=== PATIENT | female | born 2005 | race Hispanic/Latino ===

== ENCOUNTER 2024-05-07 14:45 | Emergency (ER) | payer SELFPAY ==
[~2024-05-07] VITALS: Ht 157.5 cm; Wt 40.8 kg
[2024-05-07 15:40] LABS: BASOPHILS # (AUTO) 0.05 K/uL (0.00-0.20); BASOPHILS % (AUTO) 0.6 % (0.0-5.0); EOSINOPHILS # (AUTO) 0.39 K/uL (0.00-0.70); IMMATURE GRANULOCYTE ABSOLUTE 0.02 K/uL (0-1); LYMPHOCYTES # (AUTO) 2.1 K/uL (1.0-4.8); LYMPHOCYTES % (AUTO) 27.1 % (21.0-51.0); MEAN CORPUSCULAR HGB CONC 33.5 g/dL (32.0-36.0); MEAN CORPUSCULAR VOLUME 89.6 fL (80-100); MONOCYTES # (AUTO) 0.5 K/uL (0.1-1.0); MONOCYTES % (AUTO) 5.7 % (3.0-13.0); NEUTROPHILS # (AUTO) 4.8 K/uL (1.8-7.7); NEUTROPHILS % (AUTO) 61.3 % (40.0-77.0); PLATELET COUNT (AUTO) 247 K/uL (130-400); RED BLOOD CELL COUNT(AUTO) 4.13 MIL/uL (4.00-5.50); RED CELL DISTRIBUTION WIDTH 11.4 % (11.0-15.5); WHITE BLOOD COUNT (AUTO) 7.9 K/uL (4.8-10.8)
[2024-05-07 15:46] LABS: APPEARANCE,URINE CLEAR (CLEAR); BILIRUBIN,URINE NEGATIVE (NEGATIVE); COLOR,URINE LIGHT-YELLOW (YELLOW); GLUCOSE, URINE (UA) NEGATIVE (NEGATIVE); KETONES,URINE NEGATIVE (NEGATIVE); LEUKOCYTE ESTERASE ,URINE NEGATIVE Leu/uL (NEGATIVE); NITRATE,URINE NEGATIVE (NEGATIVE); OCCULT BLOOD,URINE NEGATIVE (NEGATIVE); PROTEIN,URINE NEGATIVE (NEGATIVE); UROBILINOGEN,URINE 0.2 mg/dL (0.2-1.0)
[2024-05-07 15:47] LABS: ADD UA MICROSCOPIC NO
[2024-05-07 15:47] LABS: CREATININE 0.6 mg/dL (0.5-1.0); POTASSIUM 4.2 mmol/L (3.5-5.1)
[2024-05-07 15:49] LABS: HCG,QUALITATIVE URINE NEGATIVE (NEGATIVE)
[2024-05-07 16:18] VITALS: BP 99/60; PULSE 77; RESP 16; TEMP 98.3; O2SAT 98
[2024-05-07] MEDS ORDERED: IBUP-2077 PO (16:23)
== END 2024-05-07 16:50 | disposition home or self-care (01) ==
LOC: EDH 14:45
DX: R10.32 Left lower quadrant pain (principal); F41.9 Anxiety disorder, unspecified
CPT/HCPCS: 36415; 76770; 80048; 81003; 81025; 85025

== ENCOUNTER 2025-05-04 19:40 | Emergency (ER) | payer SELFPAY ==
[~2025-05-04] VITALS: Ht 157.5 cm; Wt 39.9 kg
[~2025-05-04 19:40] MED LIST: AMOX1TAB16 PO; IBUP-1492 PO; IBUP-2077 PO; PHEN-847 PO
[2025-05-04 19:56] LABS: APPEARANCE,URINE CLEAR (CLEAR); GLUCOSE, URINE (UA) NEGATIVE (NEGATIVE); LEUKOCYTE ESTERASE ,URINE NEGATIVE Leu/uL (NEGATIVE); NITRATE,URINE NEGATIVE (NEGATIVE); OCCULT BLOOD,URINE NEGATIVE (NEGATIVE)
[2025-05-04 19:58] LABS: ADD UA MICROSCOPIC YES; SQUAMOUS EPITHELIAL CELL,UR FEW /HPF (0-2)
[2025-05-04 20:08] LABS: SARS-CoV-2, RNA, NAAT NEGATIVE SARS CoV-2 (NEGATIVE)
[2025-05-04 20:12] LABS: RAPID GROUP A STREP negative (NEGATIVE)
[2025-05-04 20:22] LABS: INFLUENZA TYPE A Negative For Type A (NEGATIVE); INFLUENZA TYPE B Negative For Type B (NEGATIVE)
[2025-05-04] MEDS: LACTATED RINGERS 1000ML 1,000 ML IV STA (20:28)
[2025-05-04] MEDS: BENZOCAINE/MENTH/CETYLPYRD CL 1 EACH LOZENGE MM STA (20:28)
--- NOTE | 2025-05-04 20:38 | ERN ---
ED Note History of Present Illness Stated Complaint: C/O HEADACHE,SORE THROAT,SOB,COUGH,FEVER,CHILLS Chief Complaint: Sore Throat Time Seen by MD: 19:44 Time Seen by Midlevel: 19:50 Dictation: 19-year-old female with no past medical history coming in complaining of throat pain, headache, generalized weakness and fever. Patient states it has been going on since it is the weekend. Patient states she was seen at a clinic on Friday where they tested her for strep and was negative. Patient however states she still has a same symptoms. Allergies: Coded Allergies: No Known Allergies (Unverified Allergy, Unknown, 05/07/24) Home Meds Active Scripts Ibuprofen (Ibuprofen) 600 Mg Tablet, 600 MG PO Q6H PRN for PAIN, #30 TAB Prov:KOREY MONTESP 11/15/24 Amoxicillin/Potassium Clav (Amox Tr-K Clv 875-125 mg Tab) 875 Mg-125 Mg Tablet, 1 EACH PO BID for 7 Days, #14 TAB 0 Refills Prov:KOREY MONTES 11/15/24 Phenazopyridine HCl (Pyridium) 200 Mg Tab, 200 MG PO TIDPC for 3 Days, #9 TAB TAKE WITH FOOD TO PREVENT STOMACH UPSET. Prov:KOREY MONTES 11/15/24 Ibuprofen (Ibuprofen 800 mg Tab) 800 Mg Tab, 800 MG PO Q8H PRN for fever or pain, #30 TAB 0 Refills Prov:KOREY MONTES 05/07/24 Past Medical History Past Medical History: No Pertinent History Surgical History: None History: Not Applicable LMP: Apr 24, 2025 Review of System Dictation Constitutional: Negative for fever,chills, and weight loss Eyes: Negative for injury, pain,redness, and discharge ENT: Negative for injury,pain or swelling Cardiovascular: Negative for chest pain, palpitations, and edema Respiratory: Negative for shortness of breath, positive cough Abdomen/GI: Negative for abdominal pain, nausea, vomiting, diarrhea, and constipation Back: Negative for injury and pain : Negative for injury, bleeding and discharge MS/Extremity: Negative for injury and deformity Skin: Negative for rash, and discoloration Neuro: Negative for headache, weakness, numbness, tingling, and seizure Psych: Negative for suicide ideation, homicidal ideation, and hallucinations Review of Systems: was completed Initial Vital Sign VS Vital Signs Date Time Temp Pulse Resp B/P (MAP) Pulse Ox O2 Delivery O2 Flow Rate FiO2 05/04/25 19:44 99.1 102 20 115/69 99 Room Air 05/04/25 20:05 0 21 Physical Exam Dictation General: awake, alert, NAD Head/Face: Normocephalic, atraumatic Eyes: PERRL, EOMI, vision at baseline ENT: oral cavity clear, TMs clear, no signs of infection Neck: Trachea midline, supple, no nuchal rigidity Cardiovascular: RRR, normal S1/S2, No MRGs, no JVD Respiratory: CTAB, no respiratory distress, No rales or wheezes Abdomen: Soft, non-tender, non-distended, normal bowel sounds, no guarding or rebound. Skin: Warm, dry, normal turgor, no rash MS/Extremity: Pulses equal, no cyanosis, neurovascular intact, FROM Neuro: COAx4, GCS 15, strength 5/5, CN 2-12 intact, normal cerebellar exam, normal gait, Psych: Normal behavior, mood, and affect normal Results (Laboratory/Radiology) Laboratory/Radiology Laboratory Tests Test 05/04/25 19:46 05/04/25 20:04 Urine Color LIGHT-YELLOW (YELLOW) Urine Appearance CLEAR (CLEAR) Urine pH 7.5 (5.0-8.0) Urine Specific Dora 1.021 (1.001-1.031) Urine Protein NEGATIVE mg/dL (NEGATIVE) Urine Glucose (UA) NEGATIVE mg/dL (NEGATIVE) Urine Ketones NEGATIVE mg/dL (NEGATIVE) Urine Occult Blood NEGATIVE (NEGATIVE) Urine Nitrate NEGATIVE (NEGATIVE) Urine Bilirubin NEGATIVE mg/dL (NEGATIVE) Urine Urobilinogen 0.2 mg/dL (0.2-1.0) Urine Leukocyte Esterase NEGATIVE Addy/uL Urine RBC 2-5 /HPF (0-1) H Urine WBC 2-5 /HPF (0-1) H Urine Squamous Epithelial Cells FEW /HPF (0-2) Urine Bacteria RARE /HPF (None Seen) Influenza Type A Antigen Negative For Type A Influenza Type B Antigen Negative For Type B SARS-CoV-2, RNA, NAAT NEGATIVE SARS CoV-2 Group A Streptococcus Rapid negative (NEGATIVE) Human Chorionic Gonadotropin, Quant 0 mIU/mL (0-5) Labs Reviewed?: Yes ED Course ED Course Orders Procedure Category Date Status Time Urinalysis Profile LAB 05/04/25 Complete 19:42 Covid Rna Naat LAB 05/04/25 Complete 19:42 Influenza Type A & B, LAB 05/04/25 Complete Rapid 19:42 Rapid (Group A Strep) LAB 05/04/25 Complete 19:42 Hcg,Quantitative LAB 05/04/25 Complete 19:48 Chest 1vw RAD 05/04/25 Taken 19:48 Lactated Ringers PHA 05/04/25 Complete 1000ml (Lactated 19:48 Acetaminophen 325 Tab PHA 05/04/25 Complete (Tylenol 325mg Tab 20:00 Benzocaine/Menth/Cetylpyrd PHA 05/04/25 Complete Cl (Cepacol S 19:48 Current Medications Medications (Trade) Dose Ordered Sig/Maisha Route PRN Reason Start Time Stop Time Status Last Admin Dose Admin Acetaminophen (TYLenol 325MG TAB) 650 mg ONCE ONCE PO 05/04/25 20:00 05/04/25 20:01 DC 05/04/25 20:28 Benzocaine (Cepacol Sore Throat Lozenge) 1 each Q4H STAT MM 05/04/25 19:48 05/04/25 19:52 DC 05/04/25 20:28 Lactated Ringer's 1,000 ml @ 1,000 mls/hr Q1H STAT IV 05/04/25 19:48 05/04/25 20:47 DC 05/04/25 20:28 Vital Signs Date Time Temp Pulse Resp B/P (MAP) Pulse Ox O2 Delivery O2 Flow Rate FiO2 05/04/25 20:05 99.3 105 19 114/65 98 Room Air* 0 21 05/04/25 19:44 99.1 102 20 115/69 99 Room Air Medical Decision Making MDM MDM: 19-year-old female with no past medical history coming in complaining of throat pain, headache, generalized weakness and fever. Patient states it has been going on since it is the weekend. Patient states she was seen at a clinic on Friday where they tested her for strep and was negative. Patient however states she still has a same symptoms. Swabs are negative for COVID, flu or strep. Chest x-ray shows no acute findings, interpreted by myself. UA shows no evidence of urinary tract infection. Discussed with the patient it is more than likely viral pharyngitis and just needs from 7-10 days to have any improvement. Educated take [id number] cough medication and cough drops her throat Wilma also warm gargles. Educated to follow up with PCP in 1-2 days. Patient verbalized understanding, answered all questions. Differential diagnosis: Awake, flu, strep, viral syndrome, viral pharyngitis Rationale: Tests considered and ordered secondary to shared decision making i nclude: Previous outside records reviewed: Old ER visits. Risk of complication and/or morbidity or mortality of patient management: None Medications-Per medication reconciliation Need for hospitalization: Patient does not meet criteria for hospitalization. Need for emergency major/minor surgery: No There are no social concerns with this patient. Prescription drug management Prescriptions will include symptomatic care Patient's prior external medical records from other ER visits were reviewed by me as indicated. Prior testing and results from previous visits were reviewed. Prior tests were taken into account with medical decision making and resource utilization, independent historian/historians were used to obtain complete medical history. I independently interpreted the test that were performed, results were reviewed by me and considered findings on radiology if ordered. Medical management and examination interpretation discussions were had by me with other qualified healthcare professionals as indicated for the patient's care. DX & DISP Disposition: Discharge Departure Impression: Primary Impression: Viral pharyngitis Condition: Stable Additional Instructions: Your strep was negative. You can take [id number] medications to help with symptomatic control like Tylenol or Motrin for fever. You can take cough drops for the cough and you can do warm gargles to help soothe your throat pain. Follow up with your primary doctor in 1-2 days. Return to the hospital as needed. Referrals: SELF,REFERRAL (PCP) Time of Disposition: 21:39 I have reviewed the case, and I agree with, Diagnosis and Plan ARMOND ENNIS May 04, 2025 20:38
[2025-05-04 22:15] VITALS: BP 116/67; PULSE 93; RESP 18; TEMP 98.7; O2SAT 97
--- NOTE | 2025-05-04 22:30 | HMCIMG ---
EXAM: CR Chest, 1 view CLINICAL HISTORY: Cough. COMPARISON: None provided. FINDINGS: The lungs show no infiltrates or other acute findings. No pleural effusion or pneumothorax. The cardiomediastinal silhouette is within normal limits. No acute osseous abnormality. IMPRESSION: No acute cardiopulmonary process is evident. /[place]
== END 2025-05-04 22:20 | disposition home or self-care (01) ==
LOC: EDH 19:40
DX: J02.8 Acute pharyngitis due to other specified organisms (principal); B97.89 Other viral agents as the cause of diseases classified elsewhere; R53.1 Weakness; Z20.822 Contact with and (suspected) exposure to COVID-19
CPT/HCPCS: 99284; 96360; 87635; 71045; 84702; 87880; 87804 ×2; 81001; 36415; J7120